=== PATIENT | female | born 2000 | race Caucasian/White ===

== ENCOUNTER 2021-04-11 16:53 | Emergency (ER) | payer MEDICAID, OTHER ==
[~2021-04-11] VITALS: Ht 154.9 cm; Wt 68.0 kg
[~2021-04-11 16:53] MED LIST: ALBU0.0939
[2021-04-11 16:59] VITALS: BP 133/75
--- NOTE | 2021-04-11 17:14 | NUR ---
21/F presents to ED with c/o 8/10 throbbing sore throat and vomiting since yesterday. Patient states she feels her tonsils are swollen and the pain has progressively gotten worse, states pain worsens when she swallows and talks. Patient also states she ate [employer] food yesterday and has since had 6 epidsodes of vomiting. Patient denies abdominal pain and nausea, denies dysuria and hematuria. States she took Tylenol at 6am for and it only provided mild relief. Patient placed in gown in a position of comfort.
[2021-04-11 17:50] LABS: BASOPHILS % (AUTO) 0.4 % (0.0-2.0); EOSINOPHILS % (AUTO) 0.9 % (0.0-4.0); HEMATOCRIT 39.1 % (36-48); LYMPHOCYTES # (AUTO) 1.6 K/uL (2.5-16.5); LYMPHOCYTES % (AUTO) 27.9 % (20.5-51.1); MEAN CORPUSCULAR HEMOGLOBIN 28 pg (27-31); MEAN CORPUSCULAR HGB CONC 33 g/dL (33-37); MEAN CORPUSCULAR VOLUME 83.7 fL (80-94); MONOCYTES # (AUTO) 0.5 K/uL (0.8-1.0); MONOCYTES % (AUTO) 9.1 % (1.7-9.3); NEUTROPHILS # (AUTO) 3.5 K/uL (1.8-7.7); NEUTROPHILS % (AUTO) 61.7 % (42.2-75.2); PLATELET COUNT (AUTO) 205 K/uL (140-450); RED BLOOD CELL COUNT(AUTO) 4.67 MIL/uL (4.20-5.40); RED CELL DISTRIBUTION WIDTH 12.4 % (11.6-13.7); WHITE BLOOD COUNT (AUTO) 5.6 K/uL (4.8-10.8)
[2021-04-11] MEDS: ONDANSETRON 4 MG/2 ML VIAL IVP ONE (18:05)
[2021-04-11] MEDS: NACL 0.9% 1,000 ML IV ONE (18:07)
[2021-04-11 18:13] LABS: ANION GAP 10.2 (8-16); CARBON DIOXIDE 29.4 mmol/L (21-32); CREATININE 0.8 mg/dL (0.6-1.3); POTASSIUM 3.6 mmol/L (3.5-5.1)
[2021-04-11 18:21] LABS: ALBUMIN 4.2 g/dL (3.4-5.0); BILIRUBIN,DIRECT 0.1 mg/dL (0.0-0.3); TOTAL BILIRUBIN 0.3 mg/dL (0.0-1.0)
[2021-04-11 18:45] LABS: APPEARANCE,URINE CLEAR (CLEAR); BILIRUBIN,URINE 1+ (NEGATIVE); BLOOD, URINE NEGATIVE (NEGATIVE); COLOR,URINE DARK YELLOW (YELLOW); LEUKOCYTE ESTERASE ,URINE NEGATIVE (NEGATIVE); NITRITE, URINE NEGATIVE (NEGATIVE); UGLUCOSE NEGATIVE (NEGATIVE)
--- NOTE | 2021-04-11 19:15 | NUR ---
RECIVED REPORT FROM KAYODE ANGEL, TRANSFER OF CARE. RECIVED PATIENT A&O X 4 AND AMBUALTORY.
[2021-04-11] MEDS ORDERED: ONDA-24 SL (19:22)
[2021-04-11] MEDS ORDERED: IBUPROFEN 400 MG TAB PO ONE (19:25)
[2021-04-11] MEDS: IBUPROFEN 400 MG TAB PO ONE (19:40)
--- NOTE | 2021-04-11 19:47 | NUR ---
STREP SWAB COLLECTED AND GIVEN TO ANIRUDH LEGAL COLLECTOR.
--- NOTE | 2021-04-11 19:49 | NUR ---
IV removed, catheter intact and site benign. Applied folded 4x4 gauze and tape to stop bleeding.
[2021-04-11 19:50] VITALS: BP 122/62
== END 2021-04-11 19:50 | disposition home or self-care (01) ==
LOC: MED 16:53
DX: J02.9 Acute pharyngitis, unspecified (principal); R11.2 Nausea with vomiting, unspecified
CPT/HCPCS: 36415; 80048; 80076; 81003; 81025; 83690; 85025; 87081; 96361; 96374; 99283; J2405; J7030